=== PATIENT | male | born 1990 | race African-American/Black ===

== ENCOUNTER 2017-01-10 12:12 | Emergency (ER) | payer OTHER ==
[~2017-01-10] VITALS: Ht 170.2 cm; Wt 90.3 kg
[2017-01-10] MEDS ORDERED: OMEP40CA2 PO (12:18)
[2017-01-10] MEDS ORDERED: GABA-283 PO (12:31)
[2017-01-10] MEDS ORDERED: SKEL-29 PO (12:31)
[2017-01-10] MEDS ORDERED: FISH100049 PO (12:31)
[2017-01-10] MEDS ORDERED: MAXA10TA14 PO (12:31)
[2017-01-10] MEDS ORDERED: vitamin b2 PO (12:31)
[2017-01-10] MEDS ORDERED: D 50CAP PO (12:31)
[2017-01-10] MEDS ORDERED: AMIT25TA PO (12:31)
[2017-01-10 14:01] LABS: EOS # 0.1 K/mm3 (0.0-0.50); EOS % 2.8 % (0.0-3.0); LARGE UNSTAINED CELL # 0.1 K/mm3 (0.0-0.4); LARGE UNSTAINED CELL % 1.8 % (0.0-4.0); LYMPH # 1.9 K/mm3 (1.5-6.5); MEAN CORPUSCULAR HGB CONC 32.6 g/dl (32.0-36.5); MEAN CORPUSCULAR VOLUME 85.8 fl (80.0-96.0); MONO # 0.2 K/mm3 (0.0-0.8); MONO % 5.3 % (0.0-5.0); NEUTROPHILS # 2.1 K/mm3 (1.8-7.7); NEUTROPHILS % 48.1 % (36.0-66.0); PLATELET COUNT, AUTOMATED 226 k/mm3 (150-450); RED CELL DISTRIBUTION WIDTH 13.1 % (11.5-14.5); WHITE BLOOD COUNT 4.4 K/mm3 (4.0-10.0)
--- NOTE | 2017-01-10 14:20 | REP ---
Clinical: Acute on chronic abdominal pain. Technique: Moore scale ultrasound using curved array transducer. Findings: The liver, spleen and pancreas are normal in contour, size, and echogenicity without focal hepatic, splenic or pancreatic lesions identified. The gallbladder is normal without gallstones, wall thickening or pericholecystic fluid. No biliary ductal dilatation is appreciated, and the common bile duct measures 3.3 mm diameter. The bilateral kidneys are normal in reniform shape without hydronephrosis, obvious nephrolithiasis cystic or mass lesion. Right kidney measures 10.4 x 5.6 x 5.5 cm. Left kidney measures 9.7 x 5.4 x 4.9 cm. No ascites. Impression: Normal complete abdominal ultrasound. Signed by Blake Cartwright MD 01/10/2017 02:11 P
[2017-01-10 14:25] LABS: ALBUMIN 3.9 GM/DL (3.2-5.2); ALBUMIN/GLOBULIN RATIO 1.11 (1.00-1.93); ALKALINE PHOSPHATASE 62 U/L (45-117); ALT/SGPT 150 U/L (12-78); AMYLASE 94 U/L (25-115); ANION GAP 7 MEQ/L (8-16); AST/SGOT 55 U/L (15-37); BILIRUBIN,DIRECT 0.1 MG/DL (0.0-0.2); BILIRUBIN,TOTAL 0.3 MG/DL (0.2-1.0); BLOOD UREA NITROGEN 15 MG/DL (7-18); CARBON DIOXIDE LEVEL 30 MEQ/L (21-32); CHLORIDE LEVEL 103 MEQ/L (98-107); CREATININE FOR GFR 1.18 MG/DL (0.70-1.30); GLOMERULAR FILTRATION RATE > 60.0 (>60); GLUCOSE, FASTING 84 MG/DL (70-105); POTASSIUM SERUM 4.1 MEQ/L (3.5-5.1); SODIUM LEVEL 140 MEQ/L (136-145); TOTAL PROTEIN 7.4 GM/DL (6.4-8.2)
[2017-01-10] MEDS ORDERED: SUCR1SS PO (14:38)
[2017-01-10 14:45] VITALS: BP 146/79
== END 2017-01-10 14:55 | disposition home or self-care (01) ==
LOC: M ED 13:35
DX: R10.13 Epigastric pain (principal); M54.9 Dorsalgia, unspecified; Z79.899 Other long term (current) drug therapy

== ENCOUNTER 2017-05-01 07:09 | Outpatient (CLI) | payer OTHER ==
[~2017-05-01] VITALS: Ht 170.2 cm; Wt 95.3 kg
[~2017-05-01 07:09] MED LIST: AMIT25TA PO; D 50CAP PO; FISH100049 PO; GABA-283 PO; MAXA10TA14 PO; NS 1,000 ML IV ONE; OMEP40CA2 PO; PRAZ1CAP PO; SERT-138 PO; SKEL800T97 PO; SUCR1SS PO; TRAZ50TA11 PO; vitamin b2 PO
[2017-05-01] MEDS ORDERED: PROPOFOL 200 MG/20 ML VIAL As Ordered ONE ×2 (08:16→08:17)
[2017-05-01] MEDS ORDERED: LIDOCAINE 2% INJ 100 MG/5 ML SDV (FOR ANES.) As Ordered ONE (08:17)
--- NOTE | 2017-05-01 08:19 | ROOR ---
Patient Name: Magan Evangelista Procedure Date: 05/01/2017 7:58 AM Date of : 1990 Age: 27 Room: [facility] Gender: Male Note Status: Finalized Procedure: Upper Endoscopy + Biopsies Indications: Epigastric abdominal pain, Nausea with vomiting Providers: Júnior Riley MD Referring MD: JARET RAYGOZA MD Requesting Provider: Medicines: Monitored Anesthesia Care Complications: No immediate complications. Procedure: Pre-Anesthesia Assessment: - The heart rate, respiratory rate, oxygen saturations, blood pressure, adequacy of pulmonary ventilation, and response to care were monitored throughout the procedure. The Endoscope was introduced through the mouth, and advanced to the second part of duodenum. The upper GI endoscopy was accomplished without difficulty. The patient tolerated the procedure well. Findings: The Z-line was regular and was found 40 cm from the incisors. Scattered mild inflammation characterized by congestion (edema), erythema and aphthous ulcerations was found in the cardia, in the gastric body and in the gastric antrum. Biopsies were taken with a cold forceps for Helicobacter pylori testing. The exam of the duodenum was otherwise normal. Impression: - Z-line regular, 40 cm from the incisors. - Acute gastritis. Biopsied. - The examination was otherwise normal. Recommendation: - Patient has a contact number available for emergencies. The signs and symptoms of potential delayed complications were discussed with the patient. Return to normal activities tomorrow. Written discharge instructions were provided to the patient. - High fiber diet. - Discharge patient to home. - Continue present medications. - Await pathology results. - Telephone GI clinic for pathology results in 1 week. - Return to referring physician. - The findings and recommendations were discussed with the patient's family. Júnior Riley MD Júnior Riley MD 05/01/2017 8:19:24 AM This report has been signed electronically. Number of Addenda: 0 Note Initiated On: 05/01/2017 7:58 AM Estimated Blood Loss: Estimated blood loss: none.
[2017-05-01 08:40] VITALS: BP 149/91
== END 2017-05-01 09:25 | disposition home or self-care (01) ==
LOC: M OPP 07:09
PROVIDERS: ATTEND Internal Medicine Gastroenterology
DX: R10.13 Epigastric pain (principal); R11.2 Nausea with vomiting, unspecified; K29.70 Gastritis, unspecified, without bleeding; R12 Heartburn; M54.9 Dorsalgia, unspecified; F41.9 Anxiety disorder, unspecified; F32.9 Major depressive disorder, single episode, unspecified; G43.909 Migraine, unspecified, not intractable, without status migrainosus; R06.83 Snoring; R50.9 Fever, unspecified; Z79.899 Other long term (current) drug therapy